=== PATIENT | female | born 1990 ===

== ENCOUNTER 2021-12-17 14:05 | Outpatient (CLI) | payer OTHER | END 2021-12-17 15:20 | disposition home or self-care (01) | LOC: PRENATAL 14:05 | PROVIDERS: ATTEND Obstetrics & Gynecology Maternal & Fetal Medicine | DX: O26.20 Pregnancy care for patient with recurrent pregnancy loss, unspecified trimester (principal) ==

== ENCOUNTER 2022-09-30 12:50 | Outpatient (CLI) | payer OTHER | END 2022-09-30 14:34 | disposition home or self-care (01) | LOC: PRENATAL 12:50 | PROVIDERS: ATTEND Obstetrics & Gynecology Maternal & Fetal Medicine | DX: O35.9XX0 Maternal care for (suspected) fetal abnormality and damage, unspecified, not applicable or unspecified (principal); O35.3XX0 Maternal care for (suspected) damage to fetus from viral disease in mother, not applicable or unspecified; O34.00 Maternal care for unspecified congenital malformation of uterus, unspecified trimester; O44.00 Complete placenta previa NOS or without hemorrhage, unspecified trimester; Z3A.20 20 weeks gestation of pregnancy ==

== ENCOUNTER 2022-12-23 12:29 | Outpatient (CLI) | payer OTHER | END 2022-12-23 13:45 | disposition home or self-care (01) | LOC: PRENATAL 12:29 | PROVIDERS: ATTEND Obstetrics & Gynecology Maternal & Fetal Medicine | DX: O26.849 Uterine size-date discrepancy, unspecified trimester (principal); O36.8199 Decreased fetal movements, unspecified trimester, other fetus; O34.00 Maternal care for unspecified congenital malformation of uterus, unspecified trimester; O44.00 Complete placenta previa NOS or without hemorrhage, unspecified trimester; Z3A.32 32 weeks gestation of pregnancy ==